=== PATIENT | female | born 1950 | race Caucasian/White ===

== ENCOUNTER → 2017-12-02 | Outpatient (CLI) | payer MEDICARE, OTHER | END | disposition home or self-care (01) | LOC: CDC 15:32 | DX: Z01.810 Encounter for preprocedural cardiovascular examination (principal) | CPT/HCPCS: 93000 ==

== ENCOUNTER 2018-01-20 06:19 | Day surgery (SDC) | payer OTHER ==
[~2018-01-20] VITALS: Ht 167.6 cm; Wt 81.6 kg
[~2018-01-20 06:19] MED LIST: ATORVASTATIN CA20 MG PO; CALTRATE 600 +1 EAC1 PO; VITAMIN D2000 UNIT PO
[2018-01-20 06:59] VITALS: BP 124/74
[2018-01-20 10:14] VITALS: BP 119/62
[2018-01-20 11:10] VITALS: BP 107/59
== END 2018-01-20 11:15 | disposition home or self-care (01) ==
LOC: SDC 06:19
DX: N84.0 Polyp of corpus uteri (principal); N84.1 Polyp of cervix uteri; N95.0 Postmenopausal bleeding; E78.00 Pure hypercholesterolemia, unspecified
CPT/HCPCS: 88305; J0131; J0330; J1100; J1170; J1885; J2405; J2710; J3010; Q0175